=== PATIENT | female | born 1935 | race Caucasian/White ===

== ENCOUNTER 2018-07-30 21:44 | Emergency (ER) | payer SELFPAY ==
[~2018-07-30] VITALS: Ht 165.1 cm; Wt 59.0 kg
[2018-07-30 22:00] VITALS: BP 144/104
--- NOTE | 2018-07-30 22:08 | NUR ---
pt bibson from home. c/o medication refill. pt in bed, being seen by MD. VS stable. No s/s of acute distress or sob noted.
== END 2018-07-30 22:37 | disposition home or self-care (01) ==
LOC: ER 21:47
DX: I10 Essential (primary) hypertension (principal); E78.00 Pure hypercholesterolemia, unspecified; K59.00 Constipation, unspecified; I25.2 Old myocardial infarction; Z86.73 Personal history of transient ischemic attack (TIA), and cerebral infarction without residual deficits
CPT/HCPCS: A4606; Z7610